=== PATIENT | female | born 1990 | race African-American/Black ===

== ENCOUNTER 2019-10-10 15:33 | Emergency (ER) | payer OTHER ==
[~2019-10-10] VITALS: Ht 157.5 cm; Wt 91.6 kg
[2019-10-10] MEDS ORDERED: PENICILLIN V P500 MG PO (16:49)
[2019-10-10] MEDS ORDERED: NORCO 5-325 TA1 EAC1 PO (16:49)
[2019-10-10 17:05] VITALS: BP 128/78
== END 2019-10-10 17:07 | disposition home or self-care (01) ==
LOC: ER 15:33
DX: K04.01 Reversible pulpitis (principal); Z88.1 Allergy status to other antibiotic agents; Z88.2 Allergy status to sulfonamides

== ENCOUNTER 2019-12-06 13:46 | Emergency (ER) | payer OTHER ==
[~2019-12-06] VITALS: Ht 160 cm; Wt 90.3 kg
[~2019-12-06 13:46] MED LIST: NORCO 5-325 TA1 EAC1 PO; PENICILLIN V P500 MG PO
[2019-12-06] MEDS ORDERED: NORCO 5-325 TA1 EAC1 PO (14:35)
[2019-12-06] MEDS ORDERED: PENICILLIN V P500 MG PO (14:35)
[2019-12-06 14:40] VITALS: BP 132/71
== END 2019-12-06 14:41 | disposition home or self-care (01) ==
LOC: ER 13:46
DX: K08.89 Other specified disorders of teeth and supporting structures (principal); R51 Headache; Z88.2 Allergy status to sulfonamides